=== PATIENT | female | born 1985 | race Caucasian/White ===

== ENCOUNTER 2017-12-05 22:58 | Emergency (ER) | payer SELFPAY ==
[~2017-12-05] VITALS: Ht 157.5 cm; Wt 59.0 kg
[2017-12-06] MEDS ORDERED: RX-NAPROXEN (NAPROSYN) 250 MG TAB PPK#4 PO STA (00:59)
[2017-12-06] MEDS ORDERED: NAPR-915 PO (01:12)
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
[2017-12-06 01:24] VITALS: BP 114/72
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
== END 2017-12-06 01:24 | disposition home or self-care (01) ==
LOC: EDUNIT# 22:58 → ER 22:59
DX: S60.221A Contusion of right hand, initial encounter (principal); M79.641 Pain in right hand; F17.210 Nicotine dependence, cigarettes, uncomplicated; Z88.1 Allergy status to other antibiotic agents; V40.5XXA Car driver injured in collision with pedestrian or animal in traffic accident, initial encounter
CPT/HCPCS: 73130

== ENCOUNTER 2018-11-03 10:38 | Emergency (ER) | payer SELFPAY ==
[~2018-11-03] VITALS: Ht 162 cm; Wt 56.8 kg
[~2018-11-03 10:38] MED LIST: NAPR-915 PO
[2018-11-03] MEDS ORDERED: ORPHENADRINE 60 MG/2 ML (NORFLEX) AMP IM ONE (11:30)
[2018-11-03] MEDS ORDERED: KETOROLAC 30 MG/ML VIAL IM ONE (11:30)
--- NOTE | 2018-11-03 11:41 | ED Neck-Back Pain/Injury ---
General Chief Complaint: Back Problems Stated Complaint: BACK PAIN Nursing Triage Note: Pt to triage with C/O upper back pain/left shoulder pain x 1.5 wks. Pt reports going to [facility] urgent care on 10/25/18, prescribed prednisone, flexiril and alieve. Pt reports pain unrelieved. Pt then went to urgent care again 10/30/18, pt got a chest x-ray which was unremarkable, instructed to d/c prednisone, recieved a steriod shot. Pt rates pain 10/19 at this time, no Hx of chronic back pain. Nursing Sepsis Screen: No Definite Risk History of Present Illness Date Seen by Provider: Nov 03, 2018 Time Seen by Provider: 11:20 Initial Comments 33 year old female reports back, rhomboid and shoulder pain for 10 days. She has been seen twice over the last day at urgent care, she is received prednisone, Flexeril, naproxen 500 mg and a steroid shot. She has had no improvement in her symptoms. She denies an injury. She is right-hand dominant. Location: C-Spine, Paraspinous Muscles Timing/Duration: 1 Week Severity: Moderate Pain/Injury Location: Upper Extremity (left ), Neck Radiation: Other (left arm ) Method of Injury: Unknown (Awoke with pain on 10/31) Associated Symptoms: muscle spasms; No lower back pain, No loss of bladder control, No loss of bowel control; other (paresthesia tingling in the left upper extremity.) Allergies and Home Medications Allergies Coded Allergies: tetracycline (Verified Allergy, Unknown, 12/06/17) Home Medications Cyclobenzaprine HCl 10 Mg Tablet, 10 MG PO Q8H PRN for SPASMS Prescribed by: AYUSH RIVERA on 11/03/18 1248 Naproxen 500 Mg Tablet, 500 MG PO BID Prescribed by: JULIA BRADY on 12/06/17 0112 Tramadol HCl 50 Mg Tablet, 50 MG PO Q6H PRN for PAIN Prescribed by: AYUSH RIVERA on 11/03/18 1248 Patient Home Medication List Home Medication List Reviewed: Yes Review of Systems Constitutional: no symptoms reported, see HPI Genitourinary: no symptoms reported, see HPI : No Musculoskeletal: see HPI, muscle pain, muscle weakness (left UE), neck pain Skin: no symptoms reported, see HPI All Other Systems Reviewed Negative Unless Noted: Yes Past Chmjghj-Gedpdi-Tpexwu Hx Past Med/Social Hx: Reviewed Nursing Past Med/Soc Hx Patient Social History Alcohol Use: Rarely Uses Recreational Drug Use: No Smoking Status: Current Everyday Smoker Type Used: Cigarettes 2nd Hand Smoke Exposure: Yes Recent Foreign Travel: No Contact w/Someone Who Travel: No Recent Infectious Disease Expo: No Recent Hopitalizations: No Physical Abuse: No Sexual Abuse: No Mistreated: No Fear: No Seasonal Allergies Seasonal Allergies: No Past Medical History Surgeries: No Respiratory: No Cardiac: No Neurological: No Reproductive Disorders: No Genitourinary: No Gastrointestinal: No Musculoskeletal: No Endocrine: No HEENT: No Cancer: No Psychosocial: No Integumentary: No Blood Disorders: No Physical Exam Vital Signs Vital Signs - First Documented 11/03/18 10:59 Temp 36.9 Pulse 90 Resp 19 B/P (MAP) 124/83 (97) Pulse Ox 99 O2 Delivery Room Air Capillary Refill : Less Than 3 Seconds Height, Weight, BMI Height: 5'2.00" Weight: 130lbs. oz. 58.775313wf; 21.00 BMI Method:Stated General Appearance: No Apparent Distress, WD/WN HEENT: PERRL/EOMI, TMs Normal, Normal ENT Inspection, Pharynx Normal Neck: Normal Inspection; No Carotid Bruit; Limited Range of Motion, Tender Lateral (left), Tender Midline Cardiovascular: Regular Rate, Rhythm, No Edema, No Murmur, Normal Peripheral Pulses Respiratory: Chest Non Tender, Lungs Clear, Normal Breath Sounds Gastrointestinal: Normal Bowel Sounds, Non Tender, Soft Neurologic/Psychiatric: Alert, Oriented x3, No Motor/Sensory Deficits, Normal Mood/Affect Skin: Normal Color, Warm/Dry Progress/Results/Core Measures Results/Orders Lab Results Laboratory Tests Test 11/03/18 11:33 Range/Units Urine Opiates Screen NEGATIVE NEGATIVE Urine Oxycodone Screen NEGATIVE NEGATIVE Urine Methadone Screen NEGATIVE NEGATIVE Urine Propoxyphene Screen NEGATIVE NEGATIVE Urine Barbiturates Screen NEGATIVE NEGATIVE Ur Tricyclic Antidepressants Screen NEGATIVE NEGATIVE Urine Phencyclidine Screen NEGATIVE NEGATIVE Urine Amphetamines Screen NEGATIVE NEGATIVE Urine Methamphetamines Screen NEGATIVE NEGATIVE Urine Benzodiazepines Screen NEGATIVE NEGATIVE Urine Cocaine Screen NEGATIVE NEGATIVE Urine Cannabinoids Screen NEGATIVE NEGATIVE My Orders Orders - MIGUEL,AYUSH CONDUCTOR ORCHESTRA Orphenadrine Injection (Norflex Injectio (11/03/18 11:30) Ketorolac Injection (Toradol Injection) (11/03/18 11:30) Drug Screen Stat (Urine) (11/03/18 11:30) Urine Bedside (11/03/18 11:30) Ct Cervical Spine Wo (11/03/18 11:30) Shoulder, Left, 3 Views (11/03/18 11:30) Tramadol Tablet (Ultram Tablet) (11/03/18 12:45) Medications Given in ED Current Medications Medications Dose Ordered Sig/Vincenzo Route Start Time Stop Time Status Last Admin Dose Admin Ketorolac Tromethamine 30 mg ONCE ONCE IM 11/03/18 11:30 11/03/18 11:33 DC 11/03/18 11:43 30 MG Orphenadrine Citrate 60 mg ONCE ONCE IM 11/03/18 11:30 11/03/18 11:33 DC 11/03/18 11:42 60 MG Tramadol HCl 50 mg ONCE ONCE PO 11/03/18 12:45 11/03/18 12:46 DC 11/03/18 12:40 50 MG Vital Signs/I&O 11/03/18 11/03/18 10:59 12:51 Temp 36.9 36.9 Pulse 90 90 Resp 19 B/P (MAP) 124/83 (97) 126/81 (97) Pulse Ox 99 100 O2 Delivery Room Air Simple Mask Blood Pressure Mean: 97 Progress Progress Note : Time: 11:20 Progress Note Patient seen and evaluated, will give Norflex 60 milligrams IM, Toradol 30 mg IM and obtained a CT of the cervical spine and x-rays of the left shoulder. 1200 patient reports trace improvement in her symptoms since the Norflex and Toradol. Awaiting CT results. 1215 CT results show a small disc protrusion at C6 7 the left, x-rays of the left shoulder negative. Results discussed with the patient. We'll give tramadol 50 mg orally for pain. 1230 discharge instructions and return precautions reviewed with the patient. Diagnostic Imaging Diagonstic Imaging: Xray Comments NAME: GILMER KIM Manuela [facility] REC#: [id number] PT STATUS: REG ER : 1985 PHYSICIAN: AYUSH RIVERA ADMIT DATE: 11/03/18/ER Draft Date of Exam:11/03/18 SHOULDER, LEFT, 3 VIEWS INDICATION: Waking to left shoulder pain x2 weeks. TECHNIQUE: Three views of the left shoulder CORRELATION STUDY: None FINDINGS: The glenohumeral and acromioclavicular alignment are maintained and unremarkable. There is no evidence for acute fracture or dislocation. The visualized soft tissues are unremarkable. IMPRESSION: 1. Unremarkable examination left shoulder. Dictated on workstation # [id number] Dict: 11/03/18 1212 Trans: 11/03/183 [id number] Interpreted by: NELA STAFFORD DO Electronically signed by: Reviewed: Reviewed by Me Diagonstic Imaging: CT Plain Films/CT/US/NM/MRI: c-spine Comments NAME: GILMER KIM [facility] REC#: [id number] PT STATUS: REG ER : 1985 PHYSICIAN: AYUSH RIVERA ADMIT DATE: 11/03/18/ER Draft Date of Exam:11/03/18 CT CERVICAL SPINE WO PROCEDURE: CT cervical spine without contrast. TECHNIQUE: Multiple contiguous axial images were obtained through the cervical spine without the use of intravenous contrast. Sagittal and coronal reformations were then performed. Auto Exposure Controls were utilized during the CT exam to meet ALARA standards for radiation dose reduction. INDICATION: Neck pain 2 weeks' history, no known discrete injury. Focal left paramedian posterior disc protrusion at the C6-C7 level impinging upon the left lateral recess as well as indenting the left ventral thecal sac and resulting in at least moderate stenosis of the left-sided foramen at C6-C7. There is spondylosis with disc space narrowing and mild endplate osteophytes at that level however the bony hypertrophy did not contribute substantially to the stenosis. The remaining levels were unremarkable. There is no fracture and no bony destruction. IMPRESSION: Left paramedian disc protrusion and herniation C6-C7 with central canal, left lateral recess and left foraminal stenosis. No acute bony abnormality. Dictated on workstation # [id number] Dict: 11/03/18 1212 Trans: 11/03/18 1223 RAHEEM [id number] Interpreted by: EVANGELISTA YANCEY Reviewed: Reviewed by Me Departure Impression Primary Impression: Cervical radiculopathy Additional Impression: Herniated nucleus pulposus, C6-7 left Disposition: 01 HOME, SELF-CARE Condition: Improved Departure-Patient Inst. Decision time for Depature: 12:30 Referrals: NO,LOCAL PHYSICIAN (PCP/Family) Primary Care Physician Patient Instructions: Generalized Neck Pain (DC), Herniated Disc (DC) Add. Discharge Instructions: Alternate heat and ice to your next 20 minutes at a time. Consider evaluation by a chiropractor. Continue to take the Naproxen 500 mg twice daily with food. Take Flexeril 10 mg as needed every 8 hours for muscle spasms. Use Tylenol 650 mg every 8 hours for pain. For worsening pain, Ultram 50 mg every 8 hours. Use [place] rub or patches to neck, left shoulder blade. Follow up with your Primary Care Provider. Call [facility] for an appt with Dr. Burt or [facility]: Dr. Briggs or [place]. Return to emergency department for new, urgent health care needs. All discharge instructions reviewed with patient and/or family. Voiced understanding. Scripts Tramadol HCl (Tramadol HCl) 50 Mg Tablet 50 MG PO Q6H PRN for PAIN, #30 TAB 0 Refills Prov: AYUSH RIVERA 11/03/18 Cyclobenzaprine HCl (Cyclobenzaprine HCl) 10 Mg Tablet 10 MG PO Q8H PRN for SPASMS, #30 TAB 0 Refills Prov: AYUSH RIVERA 11/03/18 AYUSH RIVERA Nov 03, 2018 11:40
[2018-11-03 11:54] LABS: AMPHETAMINE SCREEN, URINE NEGATIVE (NEGATIVE); BARBITURATE SCREEN URINE NEGATIVE (NEGATIVE); BENZODIAZEPINES SCREEN URINE NEGATIVE (NEGATIVE); CANNABINOID SCREEN, URINE NEGATIVE (NEGATIVE); COCAINE SCREEN URINE NEGATIVE (NEGATIVE); METHADONE STAT NEGATIVE (NEGATIVE); METHAMPHETAMINE SCREEN URINE S NEGATIVE (NEGATIVE); OPIATE SCREEN URINE NEGATIVE (NEGATIVE); OXYCODONE STAT NEGATIVE (NEGATIVE); PROPOXYPHENE STAT NEGATIVE (NEGATIVE); TRICYCLIC ANTIDEPRESSANTS SCRE NEGATIVE (NEGATIVE)
--- NOTE | 2018-11-03 12:13 | Diagnostic Imaging Report ---
INDICATION: Waking to left shoulder pain x2 weeks. TECHNIQUE: Three views of the left shoulder CORRELATION STUDY: None FINDINGS: The glenohumeral and acromioclavicular alignment are maintained and unremarkable. There is no evidence for acute fracture or dislocation. The visualized soft tissues are unremarkable. IMPRESSION: 1. Unremarkable examination left shoulder. Dictated by: Dictated on workstation # [id number]
--- NOTE | 2018-11-03 12:23 | Diagnostic Imaging Report ---
PROCEDURE: CT cervical spine without contrast. TECHNIQUE: Multiple contiguous axial images were obtained through the cervical spine without the use of intravenous contrast. Sagittal and coronal reformations were then performed. Auto Exposure Controls were utilized during the CT exam to meet ALARA standards for radiation dose reduction. INDICATION: Neck pain 2 weeks' history, no known discrete injury. Focal left paramedian posterior disc protrusion at the C6-C7 level impinging upon the left lateral recess as well as indenting the left ventral thecal sac and resulting in at least moderate stenosis of the left-sided foramen at C6-C7. There is spondylosis with disc space narrowing and mild endplate osteophytes at that level however the bony hypertrophy did not contribute substantially to the stenosis. The remaining levels were unremarkable. There is no fracture and no bony destruction. IMPRESSION: Left paramedian disc protrusion and herniation C6-C7 with central canal, left lateral recess and left foraminal stenosis. No acute bony abnormality. Dictated by: Dictated on workstation # [id number]
[2018-11-03] MEDS ORDERED: CYCL10TA9 PO (12:48)
[2018-11-03] MEDS ORDERED: TRAM50TA2 PO (12:48)
[2018-11-03 12:51] VITALS: BP 126/81
== END 2018-11-03 12:51 | disposition home or self-care (01) ==
LOC: EDUNIT# 10:38 → ER 10:39
DX: M50.123 Cervical disc disorder at C6-C7 level with radiculopathy (principal); F17.210 Nicotine dependence, cigarettes, uncomplicated; Z88.1 Allergy status to other antibiotic agents
CPT/HCPCS: 72125; 73030; 80306; 84703

== ENCOUNTER 2021-04-11 07:00 | Inpatient (IN) | payer BC ==
[~2021-04-11] VITALS: Ht 165 cm; Wt 84.4 kg
[2021-04-11] VITALS (58 sets, daily range): BP systolic 74–134; BP diastolic 41–93
[~2021-04-11 07:00] MED LIST changes: +CYCL10TA25 PO; +TRM50T PO
[2021-04-11] MEDS ORDERED: AMPICILLIN FOR IV USE 2,000 MG in NS (IVPB) 50 ML IV SCH (07:48)
[2021-04-11] MEDS ORDERED: AMPICILLIN 2,000 MG/14.8 ML (IV USE) ONE (07:56)
[2021-04-11] MEDS ORDERED: WATER (STERILE) FOR INJECTION 0 ML ONE (07:56)
[2021-04-11] MEDS ORDERED: D5 LR IV SOLUTION 1,000 ML IV ONE (07:57)
[2021-04-11] MEDS ORDERED: LIDOCAINE/EPI 1%-1:200,000 (XYLOCAINE) 30 ML VIAL INJ ONE (08:00)
[2021-04-11] MEDS ORDERED: OXYTOCIN PRE-MIX DRIP 500 ML IV SCH ×3 (08:00→20:00)
[2021-04-11] MEDS: D5 LR IV SOLUTION 1,000 ML IV SCH ×3 (08:00→18:10)
[2021-04-11 08:01] LABS: BASOPHILS % (AUTO) 0 % (0-10); EOSINOPHILS # (AUTO) 0.1 10^3/uL (0.0-0.3); EOSINOPHILS % (AUTO) 1 % (0-10); HEMATOCRIT 33 % (35-52); HEMOGLOBIN 10.8 g/dL (11.5-16.0); LYMPHOCYTES # (AUTO) 2.5 10^3/uL (1.0-4.0); LYMPHOCYTES % (AUTO) 21 % (12-44); MEAN CORPUSCULAR HEMOGLOBIN 29 pg (25-34); MEAN CORPUSCULAR HGB CONC 33 g/dL (32-36); MEAN CORPUSCULAR VOLUME 89 fL (80-99); MEAN PLATELET VOLUME 10.5 fL (9.0-12.2); MONOCYTES # (AUTO) 0.8 10^3/uL (0.0-1.0); MONOCYTES % (AUTO) 7 % (0-12); NEUTROPHILS # (AUTO) 8.6 10^3/uL (1.8-7.8); NEUTROPHILS % (AUTO) 71 % (42-75); PLATELET COUNT 289 10^3/uL (130-400); WHITE BLOOD COUNT 12.2 10^3/uL (4.3-11.0)
[2021-04-11] MEDS ORDERED: AMPICILLIN FOR IV USE 2,000 MG in WATER (STERILE) FOR INJECTION 14.8 ML IV ONE (08:15)
[2021-04-11] MEDS ORDERED: D5 LR IV SOLUTION 1,000 ML IV SCH (08:15)
[2021-04-11] MEDS ORDERED: OXYC1TAB87 PO (08:25)
[2021-04-11] MEDS ORDERED: DOCU-143 PO (08:25)
[2021-04-11] MEDS ORDERED: IBUP-1780 PO (08:25)
--- NOTE | 2021-04-11 08:30 | Discharge Inst-Surgical ---
Discharge Inst-Surgical Depart Medication/Instructions New, Converted or Re-Newed RX: Transmitted to Pharmacy Consults/Follow Up Patient Instructions: As directed Orders & Referrals Follow Up Appt: Call to make follow up appt. for patient in 4 weeks. Activity Per routine post vaginal delivery instructions. Please call in RX to patient pharmacy. Diet as tolerated Patient may shower or tub bathe as desired. Diet Discharge Diet: No Restrictions GERMAN ELIAS MD Apr 11, 2021 08:30
--- NOTE | 2021-04-11 08:32 | History & Physical ---
History and Physical Date Seen by Provider: Apr 11, 2021 Time Seen by Provider: 12:00 This patient is a 35-year-old female at 39+ weeks gestation admitted for induction of labor electively. She has had no problems with this her GBS culture was positive. She denies rupture membranes or bleeding. She does feel baby moving has occasional contractions Allergies are to tetracycline Medications are vitamin Medical social and surgical history is are per the antepartum record HEENT exam is normal Neck is supple no lymphadenopathy no thyromegaly Abdomen is gravid soft nontender nondistended Extremities show no clubbing or cyanosis. There is no Homans' sign. Pelvic exam is pending Assessment term at 39+ weeks gestation admitted for induction of labor. We anticipate a vaginal delivery 39 weeks gestation admitted for elective induction of labor Allergies and Home Medications Allergies Coded Allergies: tetracycline (Verified Allergy, Unknown, 12/06/17) Patient Home Medication List Home Medication List Reviewed: Yes Cyclobenzaprine HCl (Cyclobenzaprine HCl) 10 Mg Tablet, 10 MG PO Q8H PRN for SPASMS Prescribed by: AYUSH RIVERA on 11/03/18 1248 Docusate Sodium (Colace) 100 Mg Capsule, 100 MG PO BID Prescribed by: GERMAN CARRASCO on 04/11/21 0825 Ibuprofen (Ibuprofen) 800 Mg Tablet, 800 MG PO Q6H PRN for PAIN Prescribed by: GERMAN CARRASCO on 04/11/21 0825 Naproxen (Naproxen) 500 Mg Tablet, 500 MG PO BID Prescribed by: JULIA BRADY on 12/06/17 0112 Tramadol HCl (Tramadol HCl) 50 Mg Tablet, 50 MG PO Q6H PRN for PAIN Prescribed by: AYUSH RIVERA on 11/03/18 1248 GERMAN ELIAS MD Apr 11, 2021 08:32
[2021-04-11] MEDS ORDERED: fentaNYL 2 mcg/ml BUPIVA 0.125 100 ML ONE (11:54)
[2021-04-11] MEDS ORDERED: fentaNYL INJ 100 MCG/2 ML AMP ONE (12:32)
[2021-04-11] MEDS ORDERED: BUPIVACAINE 0.25% 30 ML (SENSORCAINE) VIAL ONE (12:32)
[2021-04-11] MEDS ORDERED: ONDANSETRON 4 MG/2 ML (SDV) Z0FRAN ONE (13:02)
[2021-04-11] MEDS: AMPICILLIN FOR IV USE 1,000 MG in NS (IVPB) 50 ML IV SCH ×2 (13:32→17:45)
[2021-04-11] MEDS ORDERED: CATHETER FLUSH 10 ML SYR IV SCH (14:00)
[2021-04-11] MEDS: AMPICILLIN FOR IV USE 1,000 MG in WATER (STERILE) FOR INJECTION 7.4 ML IV SCH ×2 (15:17→19:51)
[2021-04-11] MEDS ORDERED: LIDOCAINE/EPI 2% 1:200,00 (XYLOCAINE) 10 ML VIAL ONE (16:55)
[2021-04-11] MEDS ORDERED: CATHETER FLUSH 10 ML SYR IV PRN (17:30)
[2021-04-11] MEDS ORDERED: NALOXONE 0.4 MG/ML 1 ML (NARCAN) VIAL IV PRN (17:30)
[2021-04-11] MEDS ORDERED: fentaNYL 2 mcg/ml BUPIVA 0.125 100 ML IV SCH (17:30)
[2021-04-11] MEDS ORDERED: LACTATED RINGERS 1,000 ML IV ONE (17:30)
[2021-04-11] MEDS ORDERED: ONDANSETRON 4 MG/2 ML (SDV) Z0FRAN IV PRN (18:00)
[2021-04-11] MEDS ORDERED: diphenhydrAMINE 50 MG/ML INJ (BENADRYL) IVP ONE (19:00)
[2021-04-11] MEDS ORDERED: diphenhydrAMINE 50 MG/ML INJ (BENADRYL) ONE (19:06)
[2021-04-11] MEDS ORDERED: BENZOCAINE/MENTHOL (DERMOPLAST) 56 ML CAN TP PRN (20:00)
[2021-04-11] MEDS ORDERED: TETANUS,DIPTH,PERTUSS P/F (BOOSTRIX) 0.5 ML VIAL IM ONE (20:00)
[2021-04-11] MEDS ORDERED: MEASLES,MUMPS,RUBELLA 1 EA INJ SC ONE (20:00)
[2021-04-11] MEDS ORDERED: ACETAMINOPHEN 500 MG TAB (TYLENOL) ONE (20:36)
[2021-04-11] MEDS: ACETAMINOPHEN 500 MG TAB (TYLENOL) PO SCH (20:52)
[2021-04-11] MEDS: IBUPROFEN 800 MG (MOTRIN) TAB PO SCH (23:07)
[2021-04-12 00:58] VITALS: BP 104/58
[2021-04-12 04:30] VITALS: BP 115/59
[2021-04-12] MEDS: ACETAMINOPHEN 500 MG TAB (TYLENOL) PO SCH ×3 (04:30→17:18)
[2021-04-12 09:00] VITALS: BP 114/56
[2021-04-12] MEDS: IBUPROFEN 800 MG (MOTRIN) TAB PO SCH ×3 (09:54→21:26)
--- NOTE | 2021-04-12 10:40 | Anesthesia-Regional Post-Op ---
Regional Patient Condition Mental Status: Alert, Oriented x3 Circulation: Same as Pre-Op Headache: Absent Sensation: Full Recovery Motor Block: Absent Post Op Complications Complications None Follow Up Care/Instructions Patient Instructions None needed. Anesthesia/Patient Condition Patient is doing well, no complaints, stable vital signs, no apparent adverse anesthesia problems. No complications reported per nursing. STEVE MONAE CRNA Apr 12, 2021 10:40
[2021-04-12] MEDS: DOCUSATE SODIUM 100 MG (COLACE) CAP PO SCH ×2 (10:43→21:26)
--- NOTE | 2021-04-12 10:53 | Progress Note ---
Standard Progress Note Progress Notes/Assess & Plan Date Seen by a Provider: Apr 12, 2021 Time Seen by a Provider: 10:52 Progress/Assessment & Plan This patient is without complaint. She is ambulating, voiding, tolerating oral intake well has good pain control. VS - Last 72 Hours, by Label 04/11/21 04/11/21 04/11/21 04/11/21 07:30 08:00 09:04 10:13 Temp 36.4 36.4 Pulse 105 105 80 76 Resp 18 18 18 18 B/P (MAP) 134/64 (87) 123/68 (86) 116/61 (79) Pulse Ox 100 100 O2 Delivery Room Air Room Air Room Air Room Air 04/11/21 04/11/21 04/11/21 04/11/21 10:29 10:45 10:59 11:13 Pulse 81 81 75 80 Resp 18 18 18 18 B/P (MAP) 126/73 (90) 116/67 (83) 118/66 (83) 117/74 (88) O2 Delivery Room Air Room Air Room Air Room Air 04/11/21 04/11/21 04/11/21 04/11/21 11:28 11:43 12:00 12:15 Temp 36.3 Pulse 70 70 80 88 Resp 18 18 18 18 B/P (MAP) 119/76 (90) 116/56 (76) 117/59 (78) 119/63 (81) O2 Delivery Room Air Room Air Room Air Room Air 04/11/21 04/11/21 04/11/21 04/11/21 12:38 12:43 12:46 12:49 Pulse 75 78 73 75 Resp 18 18 18 18 B/P (MAP) 113/73 (86) 115/74 (88) 118/73 (88) 118/75 (89) Pulse Ox 100 99 99 99 O2 Delivery Room Air Room Air Room Air Room Air 04/11/21 04/11/21 04/11/21 04/11/21 12:55 13:00 13:02 13:04 Pulse 110 88 74 70 Resp 18 18 18 18 B/P (MAP) 105/60 (75) 92/51 (65) 74/41 (52) 74/44 (54) Pulse Ox 99 98 97 97 O2 Delivery Room Air Room Air Room Air Room Air 3/04/3004/11/21 04/11/21 04/11/21 13:06 13:10 13:11 13:14 Pulse 50 70 66 69 Resp 18 18 18 18 B/P (MAP) 99/57 (71) 93/57 (69) 100/57 (71) 95/57 (70) Pulse Ox 93 98 98 100 O2 Delivery Room Air Room Air Room Air Room Air 04/11/21 04/11/21 04/11/21 04/11/21 13:17 13:20 13:23 13:25 Temp 36.3 Pulse 85 93 95 84 Resp 18 18 18 18 B/P (MAP) 105/59 (74) 98/53 (68) 95/54 (68) 101/57 (72) Pulse Ox 100 100 100 99 O2 Delivery Room Air Room Air Room Air Room Air 04/11/21 04/11/21 04/11/21 04/11/21 13:28 13:32 13:39 13:43 Pulse 75 106 83 85 Resp 18 18 18 18 B/P (MAP) 99/57 (71) 101/64 (76) 104/56 (72) 111/57 (75) Pulse Ox 99 99 96 92 O2 Delivery Room Air Room Air Room Air Room Air 04/11/21 04/11/21 04/11/21 04/11/21 13:49 13:55 14:03 14:08 Pulse 65 87 77 91 Resp 18 18 18 18 B/P (MAP) 128/72 (90) 118/54 (75) 112/59 (76) 98/68 (78) Pulse Ox 100 96 92 99 O2 Delivery Room Air Room Air Room Air Room Air 04/11/21 04/11/21 04/11/21 04/11/21 14:29 14:44 14:59 15:00 Pulse 93 72 73 86 Resp 18 18 18 18 B/P (MAP) 99/59 (72) 96/58 (71) 101/57 (72) 110/78 (89) O2 Delivery Room Air Room Air Room Air Room Air 04/11/21 04/11/21 04/11/21 04/11/21 15:29 15:43 16:29 16:44 Pulse 71 96 103 78 Resp 18 18 18 18 B/P (MAP) 105/54 (71) 106/55 (72) 103/60 (74) 113/68 (83) O2 Delivery Room Air Room Air Room Air Non Rebreather O2 Flow Rate 15.00 04/11/21 04/11/21 04/11/21 04/11/21 17:00 17:13 17:28 17:44 Temp 36.1 Pulse 84 75 100 81 Resp 18 18 18 18 B/P (MAP) 117/64 (81) 113/60 (77) 118/71 (87) 118/70 (86) O2 Delivery Non Rebreather Non Rebreather Non Rebreather Non Rebreather O2 Flow Rate 15.00 15.00 15.00 15.00 04/11/21 04/11/21 04/11/21 04/11/21 17:59 18:13 18:34 18:43 Temp 36.2 Pulse 73 98 97 108 Resp 18 18 18 18 B/P (MAP) 124/68 (86) 128/79 (95) 132/93 (106) 128/60 (82) O2 Delivery Non Rebreather Non Rebreather Room Air Room Air O2 Flow Rate 15.00 15.00 04/11/21 04/11/21 04/11/21 04/11/21 18:57 19:12 19:27 19:57 Pulse 101 104 95 91 Resp 18 B/P (MAP) 124/58 (80) 128/60 (82) 124/72 (89) 108/54 (72) O2 Delivery Room Air 04/11/21 04/11/21 04/12/21 04/12/21 20:12 20:27 00:58 04:30 Temp 36.8 36.5 Pulse 95 99 76 63 Resp 18 B/P (MAP) 107/56 (73) 112/55 (74) 104/58 (73) 115/59 (77) Vital signs are stable. Patient is afebrile. Fundus is firm below the umbilicus and nontender. Extremities show no clubbing cyanosis. There is no Homans' sign. Assessment and plan day #1 status post term spontaneous vaginal livery doing well. Plans for routine convalescent care Final Diagnosis 39-week spontaneous vaginal delivery GERMAN ELIAS MD Apr 12, 2021 10:53
--- NOTE | 2021-04-12 10:57 | OB Labor & Delivery Record ---
Vag Delivery Note Vag Delivery Note Date of Delivery: 04/12/21 Preoperative Diagnosis: Indy Lorenzana is a (35 Gravida3/Para 2 / ,Gestational Age (wks)39with [] Postoperative Diagnosis: Same Surgeon: GERMAN ELIAS Mixer Lever Operator: [] Anesthesia: [Epidural Delivery Type: []Spontaneous Vaginal Findings: [] Viable [Male] , apgars [7 and 8], weight [8 pounds 3 ounces] Lacerations:None Intact placenta with 3 vessel cord. No nuchal cord, body cord or shoulder dystocia Estimated Blood Loss: [250] ml Complications: None Condition: Stable Description of Procedure: The patient is a 35 year old female who presented [As scheduled]. She was admitted and informed consent was obtained. Her labor course was remarkable for [] She progressed to complete dilatation and began to push. She was then set up for delivery. The 's head was delivered atraumatically in the [OA] position. The shoulders and remainder of the 's body were then delivered without difficulty. Upon delivery, the head was held below the level of the perineum and the mouth and nares were bulb suctioned. The cord was doubly clamped and cut and the infant was handed off to Mom's abdomen. An intact placenta with 3-vessel cord delivered via Willie and there was found to be minimal bleeding.~ Vigorous fundal massage was performed and the fundus was found to be firm. IV oxytocin was given. Examination of the vagina and perineum revealed a No laceration, sponge, instrument and needle counts were correct. Mom and baby were both in stable condition in the labor suite. Vitals - Labs Vital Signs - I&O Vital Signs Date Time Temp Pulse Resp B/P (MAP) Pulse Ox O2 Delivery O2 Flow Rate FiO2 04/12/21 04:30 36.5 63 18 115/59 (77) 04/12/21 00:58 76 104/58 (73) 04/11/21 20:27 36.8 99 112/55 (74) 04/11/21 20:12 95 107/56 (73) 04/11/21 19:57 91 108/54 (72) 04/11/21 19:27 95 124/72 (89) 04/11/21 19:12 104 128/60 (82) 04/11/21 18:57 101 18 124/58 (80) Room Air 04/11/21 18:43 108 18 128/60 (82) Room Air 04/11/21 18:34 97 18 132/93 (106) Room Air 04/11/21 18:13 36.2 98 18 128/79 (95) Non Rebreather 15.00 04/11/21 17:59 73 18 124/68 (86) Non Rebreather 15.00 04/11/21 17:44 81 18 118/70 (86) Non Rebreather 15.00 04/11/21 17:28 100 18 118/71 (87) Non Rebreather 15.00 04/11/21 17:13 36.1 75 18 113/60 (77) Non Rebreather 15.00 04/11/21 17:00 84 18 117/64 (81) Non Rebreather 15.00 04/11/21 16:44 78 18 113/68 (83) Non Rebreather 15.00 04/11/21 16:29 103 18 103/60 (74) Room Air 04/11/21 15:43 96 18 106/55 (72) Room Air 04/11/21 15:29 71 18 105/54 (71) Room Air 04/11/21 15:00 86 18 110/78 (89) Room Air 04/11/21 14:59 73 18 101/57 (72) Room Air 04/11/21 14:44 72 18 96/58 (71) Room Air 04/11/21 14:29 93 18 99/59 (72) Room Air 04/11/21 14:08 91 18 98/68 (78) 99 Room Air 04/11/21 14:03 77 18 112/59 (76) 92 Room Air 04/11/21 13:55 87 18 118/54 (75) 96 Room Air 04/11/21 13:49 65 18 128/72 (90) 100 Room Air 04/11/21 13:43 85 18 111/57 (75) 92 Room Air 04/11/21 13:39 83 18 104/56 (72) 96 Room Air 04/11/21 13:32 106 18 101/64 (76) 99 Room Air 04/11/21 13:28 75 18 99/57 (71) 99 Room Air 04/11/21 13:25 36.3 84 18 101/57 (72) 99 Room Air 04/11/21 13:23 95 18 95/54 (68) 100 Room Air 04/11/21 13:20 93 18 98/53 (68) 100 Room Air 04/11/21 13:17 85 18 105/59 (74) 100 Room Air 04/11/21 13:14 69 18 95/57 (70) 100 Room Air 04/11/21 13:11 66 18 100/57 (71) 98 Room Air 04/11/21 13:10 70 18 93/57 (69) 98 Room Air 04/11/21 13:06 50 18 99/57 (71) 93 Room Air 04/11/21 13:04 70 18 74/44 (54) 97 Room Air 04/11/21 13:02 74 18 74/41 (52) 97 Room Air 04/11/21 13:00 88 18 92/51 (65) 98 Room Air 04/11/21 12:55 110 18 105/60 (75) 99 Room Air 04/11/21 12:49 75 18 118/75 (89) 99 Room Air 04/11/21 12:46 73 18 118/73 (88) 99 Room Air 04/11/21 12:43 78 18 115/74 (88) 99 Room Air 04/11/21 12:38 75 18 113/73 (86) 100 Room Air 04/11/21 12:15 88 18 119/63 (81) Room Air 04/11/21 12:00 36.3 80 18 117/59 (78) Room Air 04/11/21 11:43 70 18 116/56 (76) Room Air 04/11/21 11:28 70 18 119/76 (90) Room Air 04/11/21 11:13 80 18 117/74 (88) Room Air 04/11/21 10:59 75 18 118/66 (83) Room Air I & O 04/12/21 07:00 Intake Total 1064.8 ml Balance 1064.8 ml GERMAN ELIAS MD Apr 12, 2021 10:57
[2021-04-12 12:45] VITALS: BP 105/50
[2021-04-12 16:15] VITALS: BP 116/55
[2021-04-12] MEDS ORDERED: MILK OF MAGNESIA 400 MG/5 ML 30 ML UDC PO NR (17:00)
[2021-04-12 21:26] VITALS: BP 112/57
[2021-04-13 03:28] VITALS: BP 102/59
[2021-04-13] MEDS: IBUPROFEN 800 MG (MOTRIN) TAB PO SCH ×3 (03:28→15:29)
[2021-04-13] MEDS: ACETAMINOPHEN 500 MG TAB (TYLENOL) PO SCH (03:28)
[2021-04-13] MEDS: DOCUSATE SODIUM 100 MG (COLACE) CAP PO SCH (09:07)
[2021-04-13 09:11] VITALS: BP 103/59
--- NOTE | 2021-04-13 10:52 | Progress Note ---
Standard Progress Note Progress Notes/Assess & Plan Date Seen by a Provider: Apr 13, 2021 Time Seen by a Provider: 10:50 Progress/Assessment & Plan This patient is without complaint. She is ambulating, voiding, tolerating oral intake well has good pain control. VS - Last 72 Hours, by Label 04/11/21 04/11/21 04/11/21 04/11/21 07:30 08:00 09:04 10:13 Temp 36.4 36.4 Pulse 105 105 80 76 Resp 18 18 18 18 B/P (MAP) 134/64 (87) 123/68 (86) 116/61 (79) Pulse Ox 100 100 O2 Delivery Room Air Room Air Room Air Room Air 04/11/21 04/11/21 04/11/21 04/11/21 10:29 10:45 10:59 11:13 Pulse 81 81 75 80 Resp 18 18 18 18 B/P (MAP) 126/73 (90) 116/67 (83) 118/66 (83) 117/74 (88) O2 Delivery Room Air Room Air Room Air Room Air 04/11/21 04/11/21 04/11/21 04/11/21 11:28 11:43 12:00 12:15 Temp 36.3 Pulse 70 70 80 88 Resp 18 18 18 18 B/P (MAP) 119/76 (90) 116/56 (76) 117/59 (78) 119/63 (81) O2 Delivery Room Air Room Air Room Air Room Air 04/11/21 04/11/21 04/11/21 04/11/21 12:38 12:43 12:46 12:49 Pulse 75 78 73 75 Resp 18 18 18 18 B/P (MAP) 113/73 (86) 115/74 (88) 118/73 (88) 118/75 (89) Pulse Ox 100 99 99 99 O2 Delivery Room Air Room Air Room Air Room Air 04/11/21 04/11/21 04/11/21 04/11/21 12:55 13:00 13:02 13:04 Pulse 110 88 74 70 Resp 18 18 18 18 B/P (MAP) 105/60 (75) 92/51 (65) 74/41 (52) 74/44 (54) Pulse Ox 99 98 97 97 O2 Delivery Room Air Room Air Room Air Room Air 3/04/3004/11/21 04/11/21 04/11/21 13:06 13:10 13:11 13:14 Pulse 50 70 66 69 Resp 18 18 18 18 B/P (MAP) 99/57 (71) 93/57 (69) 100/57 (71) 95/57 (70) Pulse Ox 93 98 98 100 O2 Delivery Room Air Room Air Room Air Room Air 04/11/21 04/11/21 04/11/21 04/11/21 13:17 13:20 13:23 13:25 Temp 36.3 Pulse 85 93 95 84 Resp 18 18 18 18 B/P (MAP) 105/59 (74) 98/53 (68) 95/54 (68) 101/57 (72) Pulse Ox 100 100 100 99 O2 Delivery Room Air Room Air Room Air Room Air 04/11/21 04/11/21 04/11/21 04/11/21 13:28 13:32 13:39 13:43 Pulse 75 106 83 85 Resp 18 18 18 18 B/P (MAP) 99/57 (71) 101/64 (76) 104/56 (72) 111/57 (75) Pulse Ox 99 99 96 92 O2 Delivery Room Air Room Air Room Air Room Air 04/11/21 04/11/21 04/11/21 04/11/21 13:49 13:55 14:03 14:08 Pulse 65 87 77 91 Resp 18 18 18 18 B/P (MAP) 128/72 (90) 118/54 (75) 112/59 (76) 98/68 (78) Pulse Ox 100 96 92 99 O2 Delivery Room Air Room Air Room Air Room Air 04/11/21 04/11/21 04/11/21 04/11/21 14:29 14:44 14:59 15:00 Pulse 93 72 73 86 Resp 18 18 18 18 B/P (MAP) 99/59 (72) 96/58 (71) 101/57 (72) 110/78 (89) O2 Delivery Room Air Room Air Room Air Room Air 04/11/21 04/11/21 04/11/21 04/11/21 15:29 15:43 16:29 16:44 Pulse 71 96 103 78 Resp 18 18 18 18 B/P (MAP) 105/54 (71) 106/55 (72) 103/60 (74) 113/68 (83) O2 Delivery Room Air Room Air Room Air Non Rebreather O2 Flow Rate 15.00 04/11/21 04/11/21 04/11/21 04/11/21 17:00 17:13 17:28 17:44 Temp 36.1 Pulse 84 75 100 81 Resp 18 18 18 18 B/P (MAP) 117/64 (81) 113/60 (77) 118/71 (87) 118/70 (86) O2 Delivery Non Rebreather Non Rebreather Non Rebreather Non Rebreather O2 Flow Rate 15.00 15.00 15.00 15.00 04/11/21 04/11/21 04/11/21 04/11/21 17:59 18:13 18:34 18:43 Temp 36.2 Pulse 73 98 97 108 Resp 18 18 18 18 B/P (MAP) 124/68 (86) 128/79 (95) 132/93 (106) 128/60 (82) O2 Delivery Non Rebreather Non Rebreather Room Air Room Air O2 Flow Rate 15.00 15.00 04/11/21 04/11/21 04/11/21 04/11/21 18:57 19:12 19:27 19:57 Pulse 101 104 95 91 Resp 18 B/P (MAP) 124/58 (80) 128/60 (82) 124/72 (89) 108/54 (72) O2 Delivery Room Air 04/11/21 04/11/21 04/12/21 04/12/21 20:12 20:27 00:58 04:30 Temp 36.8 36.5 Pulse 95 99 76 63 Resp 18 B/P (MAP) 107/56 (73) 112/55 (74) 104/58 (73) 115/59 (77) Vital signs are stable. Patient is afebrile. Fundus is firm below the umbilicus and nontender. Extremities show no clubbing cyanosis. There is no Homans' sign. Assessment and plan day #1 status post term spontaneous vaginal livery doing well. Plans for routine convalescent care April 13, 2021 Patient is without complaint. She is ambulating, voiding, tolerating oral intake well and has good pain control VS - Last 72 Hours, by Label 04/11/21 04/11/21 04/11/21 04/11/21 07:30 08:00 09:04 10:13 Temp 36.4 36.4 Pulse 105 105 80 76 Resp 18 18 18 18 B/P (MAP) 134/64 (87) 123/68 (86) 116/61 (79) Pulse Ox 100 100 O2 Delivery Room Air Room Air Room Air Room Air 04/11/21 04/11/21 04/11/21 04/11/21 10:29 10:45 10:59 11:13 Pulse 81 81 75 80 Resp 18 18 18 18 B/P (MAP) 126/73 (90) 116/67 (83) 118/66 (83) 117/74 (88) O2 Delivery Room Air Room Air Room Air Room Air 04/11/21 04/11/21 04/11/21 04/11/21 11:28 11:43 12:00 12:15 Temp 36.3 Pulse 70 70 80 88 Resp 18 18 18 18 B/P (MAP) 119/76 (90) 116/56 (76) 117/59 (78) 119/63 (81) O2 Delivery Room Air Room Air Room Air Room Air 04/11/21 04/11/21 04/11/21 04/11/21 12:38 12:43 12:46 12:49 Pulse 75 78 73 75 Resp 18 18 18 18 B/P (MAP) 113/73 (86) 115/74 (88) 118/73 (88) 118/75 (89) Pulse Ox 100 99 99 99 O2 Delivery Room Air Room Air Room Air Room Air 04/11/21 04/11/21 04/11/21 04/11/21 12:55 13:00 13:02 13:04 Pulse 110 88 74 70 Resp 18 18 18 18 B/P (MAP) 105/60 (75) 92/51 (65) 74/41 (52) 74/44 (54) Pulse Ox 99 98 97 97 O2 Delivery Room Air Room Air Room Air Room Air 04/11/21 04/11/21 04/11/21 04/11/21 13:06 13:10 13:11 13:14 Pulse 50 70 66 69 Resp 18 18 18 18 B/P (MAP) 99/57 (71) 93/57 (69) 100/57 (71) 95/57 (70) Pulse Ox 93 98 98 100 O2 Delivery Room Air Room Air Room Air Room Air 04/11/21 04/11/21 04/11/21 04/11/21 13:17 13:20 13:23 13:25 Temp 36.3 Pulse 85 93 95 84 Resp 18 18 18 18 B/P (MAP) 105/59 (74) 98/53 (68) 95/54 (68) 101/57 (72) Pulse Ox 100 100 100 99 O2 Delivery Room Air Room Air Room Air Room Air 04/11/21 04/11/21 04/11/21 04/11/21 13:28 13:32 13:39 13:43 Pulse 75 106 83 85 Resp 18 18 18 18 B/P (MAP) 99/57 (71) 101/64 (76) 104/56 (72) 111/57 (75) Pulse Ox 99 99 96 92 O2 Delivery Room Air Room Air Room Air Room Air 04/11/21 04/11/21 04/11/21 04/11/21 13:49 13:55 14:03 14:08 Pulse 65 87 77 91 Resp 18 18 18 18 B/P (MAP) 128/72 (90) 118/54 (75) 112/59 (76) 98/68 (78) Pulse Ox 100 96 92 99 O2 Delivery Room Air Room Air Room Air Room Air 04/11/21 04/11/21 04/11/21 04/11/21 14:29 14:44 14:59 15:00 Pulse 93 72 73 86 Resp 18 18 18 18 B/P (MAP) 99/59 (72) 96/58 (71) 101/57 (72) 110/78 (89) O2 Delivery Room Air Room Air Room Air Room Air 04/11/21 04/11/21 04/11/21 04/11/21 15:29 15:43 16:29 16:44 Pulse 71 96 103 78 Resp 18 18 18 18 B/P (MAP) 105/54 (71) 106/55 (72) 103/60 (74) 113/68 (83) O2 Delivery Room Air Room Air Room Air Non Rebreather O2 Flow Rate 15.00 04/11/21 04/11/21 04/11/21 04/11/21 17:00 17:13 17:28 17:44 Temp 36.1 Pulse 84 75 100 81 Resp 18 18 18 18 B/P (MAP) 117/64 (81) 113/60 (77) 118/71 (87) 118/70 (86) O2 Delivery Non Rebreather Non Rebreather Non Rebreather Non Rebreather O2 Flow Rate 15.00 15.00 15.00 15.00 04/11/21 04/11/21 04/11/21 04/11/21 17:59 18:13 18:34 18:43 Temp 36.2 Pulse 73 98 97 108 Resp 18 18 18 18 B/P (MAP) 124/68 (86) 128/79 (95) 132/93 (106) 128/60 (82) O2 Delivery Non Rebreather Non Rebreather Room Air Room Air O2 Flow Rate 15.00 15.00 04/11/21 04/11/21 04/11/21 04/11/21 18:57 19:12 19:27 19:57 Pulse 101 104 95 91 Resp 18 B/P (MAP) 124/58 (80) 128/60 (82) 124/72 (89) 108/54 (72) O2 Delivery Room Air 04/11/21 04/11/21 04/12/21 04/12/21 20:12 20:27 00:58 04:30 Temp 36.8 36.5 Pulse 95 99 76 63 Resp 18 B/P (MAP) 107/56 (73) 112/55 (74) 104/58 (73) 115/59 (77) 04/12/21 04/12/21 04/12/21 04/12/21 09:00 12:45 16:15 21:26 Temp 36.6 36.8 36.7 36.6 Pulse 83 73 86 74 Resp 18 18 18 18 B/P (MAP) 114/56 (75) 105/50 (68) 116/55 (75) 112/57 (75) Pulse Ox 100 97 98 98 O2 Delivery Room Air Room Air Room Air Room Air 04/13/21 04/13/21 03:28 09:11 Temp 36.6 37.1 Pulse 66 63 Resp 18 18 B/P (MAP) 102/59 (73) 103/59 (74) Pulse Ox 97 O2 Delivery Room Air Room Air Vital signs are stable. Patient is afebrile. Abdomen is benign Extremities show no clubbing or cyanosis. There is no Homans' sign. Assessment and plan Post day #2 status post term spontaneous vaginal delivery doing well. Plan is for discharge home with follow-up in clinic. Patient does report that Baby did sustain a Fractured right clavicle Final Diagnosis 39-week spontaneous vaginal delivery GERMAN ELIAS MD Apr 13, 2021 10:52
[2021-04-13 15:30] VITALS: BP 117/60
== END 2021-04-13 16:30 | disposition home or self-care (01) | DRG 807 ==
LOC: LDRP 07:10
PROVIDERS: ADMIT Obstetrics & Gynecology; ATTEND Obstetrics & Gynecology
PROC: 3E033VJ Introduction of Other Hormone into Peripheral Vein, Percutaneous Approach (ICD-10-PCS; 2021-04-11)
PROC: 10E0XZZ Delivery of Products of Conception, External Approach (ICD-10-PCS; principal; 2021-04-12)
DX: O99.824 Streptococcus B carrier state complicating childbirth (principal); Z37.0 Single live birth; Z3A.39 39 weeks gestation of pregnancy; Z88.1 Allergy status to other antibiotic agents
CPT/HCPCS: 36415; 85025; 86780; 86850; 86900; 86901